=== PATIENT | male | born 1985 | race Caucasian/White ===

== ENCOUNTER 2025-05-21 09:28 | Emergency (ER) | payer MEDICAID ==
[~2025-05-21] VITALS: Ht 185.4 cm; Wt 63.9 kg
[2025-05-21 09:41] VITALS: BP 125/80; PULSE 62; RESP 18; TEMP 97.1; O2SAT 100
--- NOTE | 2025-05-21 10:22 | Physician Documentation ---
HPI ~ General Chief Complaint: Medication Request Stated Complaint: MEDICATION REFILL Time Seen by MD: 09:57 History of Present Illness HPI Comments Patient states he is currently on medically assisted treatment with Suboxone and states that he normally takes 24 mg of bupropion daily. [place] was [place] working and got arrested and lost his prescription which he picked up about six days ago. Patient states he picked up two weeks with in his now out of Suboxone. He has no other concern or complaint at this time. Patient's last dose of Suboxone was this morning. Medication Reconciliation Allergies: Coded Allergies: Penicillins (Verified Allergy, Unknown, THROAT SWELLS, 05/21/25) Review of Systems Constitutional: Denies: chills, fever, weakness Eyes: Denies: pain, blurred vision ENT: Denies: ear pain, nose pain, throat pain, mouth pain Respiratory: Denies: cough, shortness of breath Cardiovascular: Denies: chest pain, palpitations Gastrointestinal: Denies: abdominal pain, nausea, vomiting Genitourinary: Denies: burning, dysuria Male Genitalia: Denies: penile discharge, testicular pain Neurological: Denies: headache, dizziness Musculoskeletal: Denies: pain, swelling Integumentary: Denies: rash, lesions Allergic/Immunologic: Denies: hives, itching Hematologic/Lymphatic: Denies: no symptoms reported Psychiatric: Denies: depression, anxiety Physical Exam Physical Exam Vital Signs: Temperature: 97.1, Source: Temporal, Heart Rate: 62, Respiratory Rate: 18, BP: 125/80, Pulse Oximetry: 100, Weight: 63.900 Physical Exam General: Awake and Alert, no acute distress. HEENT: Conjunctiva pink, Sclera clear, Mucus Membranes moist. Neck: Supple without masses and tenderness. Resp: Unlabored. Lungs clear to auscultation bilaterally. Heart: Regular Rate and rhythm, normal S1 and S2 without murmur, rub or gallop. Abdomen: Soft and non tender no organomegaly Extremities: No cyanosis,clubbing or edema. Skin: Warm and Dry. Progress Results/Orders Results/Orders Vital Signs 05/21/25 09:41 Temp 97.1 Pulse 62 Resp 18 B/P (MAP) 125/80 Pulse Ox 100 Medical Decision Making Findings Patient states he is currently on medically assisted treatment with Suboxone and states that he normally takes 24 mg of bupropion daily. [place] he was [place] here working and got arrested and lost his prescription which he picked up about six days ago. Patient states he picked up two weeks with in his now out of Suboxone. He has no other concern or complaint at this time. Patient's last dose of Suboxone was this morning. Patient was given a short prescription of Suboxone 8/2 mg tablets one tablet sublingual 3 times a day for three days. This is an emergency refill until patient can picker / packer his next prescription. Patient will follow up with his regular provider as soon as possible. Return to ED with any worsening, concerning or changing symptoms. Departure Disposition: 01 HOME / SELF CARE / HOMELESS Impression: Primary Impression: Opioid dependence, uncomplicated Condition: Stable Discharge Instructions: Medicine Refill at the Emergency Department Additional Instructions: Patient was given a short prescription of Suboxone 8/2 mg tablets one tablet sublingual 3 times a day for three days. This is an emergency refill until patient can picker / packer his next prescription. Patient will follow up with his regular provider as soon as possible. Return to ED with any worsening, concerning or changing symptoms. Referrals: NO PRIMARY CARE PROVIDER (PCP) Prescriptions Buprenorphine HCl/Naloxone HCl (Buprenorphin-Naloxon 8-2 mg Tb) 8 Mg-2 Mg Tab.subl 1 TAB SL TID PRN for f11.20 for 3 Days, #9 TAB 0 Refills Prov: AMANUEL MEHTA 05/21/25 Signature Scribe Signature: No scribe Attestation: No scribe AMANUEL MEHTA PAC May 21, 2025 10:22
[2025-05-21] MEDS ORDERED: BUPR1TAB45 SL (10:36)
== END 2025-05-21 10:54 | disposition home or self-care (01) ==
LOC: ER 09:28
DX: F11.20 Opioid dependence, uncomplicated (principal); Z76.0 Encounter for issue of repeat prescription; Z88.0 Allergy status to penicillin
CPT/HCPCS: 99281

== ENCOUNTER 2025-07-07 10:49 | Emergency (ER) | payer MEDICAID ==
[~2025-07-07] VITALS: Ht 180.3 cm; Wt 79.5 kg
[~2025-07-07 10:49] MED LIST: BUPR1TAB45 SL
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
[2025-07-07 10:54] VITALS: TEMP 99.5
[2025-07-07] MEDS: TETanus/Pertussis (Acell)/Diphther VAC/PF (Tdap-Adult) 0.5ml syringe IMVAC ONE (11:07)
[2025-07-07] MEDS: bacitracin 15gm ointment TP ONE (11:08)
[2025-07-07 11:12] VITALS: BP 159/54; PULSE 91; RESP 16; O2SAT 94
== END 2025-07-07 11:13 | disposition home or self-care (01) ==
LOC: ER 10:49
DX: T21.21XA Burn of second degree of chest wall, initial encounter (principal); Z88.0 Allergy status to penicillin; X58.XXXA Exposure to other specified factors, initial encounter; Y93.89 Activity, other specified; Y92.89 Other specified places as the place of occurrence of the external cause; Y99.8 Other external cause status
CPT/HCPCS: 90471; 90715; 99283